=== PATIENT | male | born 1985 | race Caucasian/White ===

== ENCOUNTER 2018-08-09 18:37 | Emergency (ER) | payer BC, OTHER | END 2018-08-09 18:56 | disposition home or self-care (01) | LOC: SCSER 18:37 | DX: S61.213A Laceration without foreign body of left middle finger without damage to nail, initial encounter (principal); F17.220 Nicotine dependence, chewing tobacco, uncomplicated; W26.0XXA Contact with knife, initial encounter | CPT/HCPCS: 12001 ==